=== PATIENT | male | born 1945 | race Caucasian/White ===

== ENCOUNTER 2018-01-01 21:27 | Inpatient (IN) ==
[2018-01-01] MEDS ORDERED: cefTRIAXone 1,000 MG VIAL IM STA (22:49)
[2018-01-01] MEDS ORDERED: ALBUTEROL NEB SOLN 5 MG/ML 20 ML/BOTTLE CONT NEB STA (22:49)
[2018-01-01] MEDS ORDERED: methylPREDNISolone SOD SUC 125 MG/2 ML VIAL IM STA (22:49)
[2018-01-01] MEDS ORDERED: cefTRIAXone 1,000 MG VIAL ONE (23:22)
[2018-01-01] MEDS ORDERED: methylPREDNISolone SOD SUC 125 MG/2 ML VIAL ONE (23:22)
[2018-01-02] MEDS ORDERED: SODIUM CHLORIDE 0.9% 1,000 ML IV STA (00:55)
[2018-01-02 01:28] LABS: Basophils % 0.2 % (0.0-0.8); Hematocrit 43.4 VOL% (42.0-52.0); Hemoglobin 14.7 GM/DL (14.0-18.0); Immature Granulocytes % 1.3 %; Immature Granulocytes Absolute 0.26 #; Lymphocytes # 1.2 10*3/uL (1.4-4.0); Mean Corpuscular HGB Conc 33.9 GM/DL (32-36); Mean Corpuscular Hemoglobin 31 PG (27-34); Mean Corpuscular Volume 90.8 FL (87-102); Mean Platelet Volume 8.9 FL (9.6-12.0); Neutrophils # 17.5 10*3/uL (1.4-7.4); Neutrophils % 87.5 % (38.7-73.9); Platelet Count 428 T/CUMM (130-400); Red Blood Count 4.78 MC/CUMM (3.8-5.5)
[2018-01-02 01:46] LABS: Lactic Acid 3.3 MMOL/L (0.4-2.0)
[2018-01-02 01:47] LABS: Alanine Aminotransferase 13 U/L (16-61); Albumin 3.2 G/DL (3.4-5.0); Alkaline Phosphatase 67 U/L (45-117); Aspartate Amino Transferase 13 U/L (0-37); Blood Urea Nitrogen 22 MG/DL (7-18); Calcium 8.8 MG/DL (8.5-10.1); Glucose 178 MG/DL (74-106); Potassium 3.6 MMOL/L (3.5-5.1); Sodium 136 MMOL/L (136-145); Total Protein 7.2 G/DL (6.4-8.3); Troponin I Only < 0.015 NG/ML (0.00-0.045)
[2018-01-02] MEDS ORDERED: SODIUM CHLORIDE 0.9% 2,350 ML IV ONE (01:47)
[2018-01-02] MEDS ORDERED: MAGNESIUM SULF RIDER 2 GM in PREMIX 1 EACH IV STA (01:50)
[2018-01-02] MEDS ORDERED: PIPERACILLIN/TAZOBACTAM 3,375 MG in SODIUM CHLORIDE 0.9% 100 ML IV SCH (02:00)
[2018-01-02] MEDS ORDERED: SODIUM CHLORIDE 0.9% 1,000 ML IV SCH (02:00)
[2018-01-02] MEDS ORDERED: MAGNESIUM SULF RIDER 50 ML IV ONE (02:07)
[2018-01-02] MEDS ORDERED: PIPERACILLIN/TAZOBACTAM 3,375 MG VIAL IV ONE (02:24)
[2018-01-02] MEDS ORDERED: SODIUM CHLORIDE 0.9% 100 ML IV ONE (02:24)
[2018-01-02] MEDS ORDERED: ACETAMINOPHEN 325 MG TABLET PO PRN (03:38)
[2018-01-02] MEDS ORDERED: ONDANSETRON 4 MG/2 ML VIAL IV PRN (03:38)
[2018-01-02] MEDS ORDERED: ALBUTEROL/IPRATROPIUM 3 ML NEB RESP TX PRN (03:38)
[2018-01-02 03:48] LABS: Partial Thromboplastin Time 27.2 SECS (0-40)
[2018-01-02 05:47] LABS: Basophils % 0.1 % (0.0-0.8); Hematocrit 40.7 VOL% (42.0-52.0); Immature Granulocytes % 1.4 %; Immature Granulocytes Absolute 0.25 #; Lymphocytes # 0.4 10*3/uL (1.4-4.0); Lymphocytes % 2.3 % (21.2-54.2); Mean Corpuscular HGB Conc 34.4 GM/DL (32-36); Mean Corpuscular Hemoglobin 31 PG (27-34); Mean Corpuscular Volume 91.1 FL (87-102); Mean Platelet Volume 9.3 FL (9.6-12.0); Monocytes # 0.4 10*3/uL (0.11-0.8); Neutrophils % 94.2 % (38.7-73.9); Platelet Count 404 T/CUMM (130-400); Red Blood Count 4.47 MC/CUMM (3.8-5.5); Red Cell Distribution Width 13.2 % (9.3-17.3); White Blood Count 18.1 T/CUMM (4-12)
[2018-01-02 06:12] LABS: Lactic Acid 6.2 MMOL/L (0.4-2.0)
[2018-01-02 06:25] LABS: Albumin 2.9 G/DL (3.4-5.0); Band Neutrophils 3 % (0-10); Bilirubin,Total 0.9 MG/DL (0.2-1.0); Calcium 8.3 MG/DL (8.5-10.1); Hypochromasia Slight; Lymphocytes 1 % (20-55); Osmolality,Calculated 281.8 MOS/KG (273-304); Ovalocytes Slight; Platelet Estimate Adequate; Potassium 4.1 MMOL/L (3.5-5.1); Segmented Neutrophils 93 % (50-85); Total Cells Counted 100
[2018-01-02 06:26] LABS: Burr Cells Slight; Giant Platelets Few
[2018-01-02] MEDS: methylPREDNISolone SOD SUC 40 MG/1 ML VIAL IV SCH ×3 (06:31→21:30)
[2018-01-02] MEDS ORDERED: SODIUM CHLORIDE 0.9% 1,000 ML IV ONE (07:14)
[2018-01-02 08:13] LABS: Lactic Acid 4.6 MMOL/L (0.4-2.0)
[2018-01-02] MEDS ORDERED: LISINOPRIL/HCTZ 20-12.5 MG TABLET PO SCH (09:00)
[2018-01-02] MEDS: ASPIRIN EC 81 MG TABLET PO SCH (09:38)
[2018-01-02] MEDS: PANTOPRAZOLE 40 MG TABLET PO SCH (09:38)
[2018-01-02] MEDS: AZITHROMYCIN INJ 500 MG in SODIUM CHLORIDE 0.9% 250 ML IV SCH (09:38)
[2018-01-02] MEDS: amLODIPine 5 MG TABLET PO SCH (09:38)
[2018-01-02] MEDS: DOCUSATE SODIUM 100 MG CAPSULE PO SCH ×2 (09:38→21:17)
[2018-01-02] MEDS: MULTIVITAMIN (OCUVITE) TABLET PO SCH (09:38)
[2018-01-02 10:21] LABS: Apearance,Urine Slightly Hazy (Clear); Bilirubin,Urine Negative (Negative); Blood, Urine Negative (Negative); Glucose,Urine (UA) 50 mg/dL (Negative); Hyaline Casts,Urine 3 /LPF (0-3); Ketones,Urine Negative (Negative); Mucus,Urine Occasional /LPF (Occasional); Nitrite,Urine Negative (Negative); Protein,Urine Negative; RBC,Urine 2 /HPF (0-4); Squamous Epithelial Cell,Urine Occasional /HPF (0-10); Urine Color Yellow (Yellow); Urine Specific Gravity 1.016 (1.001-1.035); Urine Urobilinogen < 2.0 EU/DL (0.2-1.0); WBC,Urine 1 /HPF (0-6)
[2018-01-02] MEDS: SODIUM CHLORIDE 0.9% 1,000 ML IV SCH ×2 (13:51→23:10)
[2018-01-02] MEDS: cefTRIAXone 1,000 MG in SYRINGE 1 EACH IV SCH (21:15)
[2018-01-03 05:52] LABS: Calcium 8.6 MG/DL (8.5-10.1); Osmolality,Calculated 284.5 MOS/KG (273-304); Potassium 4.8 MMOL/L (3.5-5.1)
[2018-01-03] MEDS: methylPREDNISolone SOD SUC 40 MG/1 ML VIAL IV SCH ×3 (06:14→21:44)
[2018-01-03] MEDS: DOCUSATE SODIUM 100 MG CAPSULE PO SCH ×2 (08:22→21:44)
[2018-01-03] MEDS: ASPIRIN EC 81 MG TABLET PO SCH (08:22)
[2018-01-03] MEDS: MULTIVITAMIN (OCUVITE) TABLET PO SCH (08:22)
[2018-01-03] MEDS: amLODIPine 5 MG TABLET PO SCH (08:22)
[2018-01-03] MEDS: PANTOPRAZOLE 40 MG TABLET PO SCH (08:22)
[2018-01-03] MEDS: AZITHROMYCIN INJ 500 MG in SODIUM CHLORIDE 0.9% 250 ML IV SCH (08:23)
[2018-01-03] MEDS: cefTRIAXone 1,000 MG in SYRINGE 1 EACH IV SCH (21:44)
[2018-01-04 05:33] LABS: Basophils % 0.1 % (0.0-0.8); Hematocrit 36.9 VOL% (42.0-52.0); Hemoglobin 12.9 GM/DL (14.0-18.0); Immature Granulocytes % 0.6 %; Lymphocytes # 0.8 10*3/uL (1.4-4.0); Lymphocytes % 4.6 % (21.2-54.2); Mean Corpuscular Hemoglobin 31 PG (27-34); Mean Corpuscular Volume 89.8 FL (87-102); Mean Platelet Volume 9.6 FL (9.6-12.0); Monocytes # 0.4 10*3/uL (0.11-0.8); Monocytes % 2.3 % (1.7-12.7); Neutrophils # 15.1 10*3/uL (1.4-7.4); Neutrophils % 92.4 % (38.7-73.9); Platelet Count 398 T/CUMM (130-400); Red Blood Count 4.11 MC/CUMM (3.8-5.5); Red Cell Distribution Width 13.4 % (9.3-17.3); White Blood Count 16.4 T/CUMM (4-12)
[2018-01-04 05:52] LABS: Band Neutrophils 3 % (0-10); Giant Platelets Few; Hypochromasia 1+; Lymphocytes 7 % (20-55); Platelet Estimate Adequate; Segmented Neutrophils 88 % (50-85); Total Cells Counted 100
[2018-01-04 05:53] LABS: Ovalocytes Slight
[2018-01-04 06:03] LABS: Calcium 8.5 MG/DL (8.5-10.1); Osmolality,Calculated 284.5 MOS/KG (273-304); Potassium 4.8 MMOL/L (3.5-5.1)
[2018-01-04 06:05] LABS: Lactic Acid 1.1 MMOL/L (0.4-2.0)
[2018-01-04] MEDS: methylPREDNISolone SOD SUC 40 MG/1 ML VIAL IV SCH ×3 (06:35→22:53)
[2018-01-04] MEDS: MULTIVITAMIN (OCUVITE) TABLET PO SCH (08:31)
[2018-01-04] MEDS: amLODIPine 5 MG TABLET PO SCH (08:31)
[2018-01-04] MEDS: ASPIRIN EC 81 MG TABLET PO SCH (08:31)
[2018-01-04] MEDS: PANTOPRAZOLE 40 MG TABLET PO SCH (08:31)
[2018-01-04] MEDS: DOCUSATE SODIUM 100 MG CAPSULE PO SCH ×2 (08:32→21:21)
[2018-01-04] MEDS: AZITHROMYCIN INJ 500 MG in SODIUM CHLORIDE 0.9% 250 ML IV SCH (08:32)
[2018-01-04] MEDS: cefTRIAXone 1,000 MG in SYRINGE 1 EACH IV SCH (22:52)
[2018-01-05] MEDS: methylPREDNISolone SOD SUC 40 MG/1 ML VIAL IV SCH (05:37)
[2018-01-05 08:07] VITALS: BP 148/88
[2018-01-05] MEDS: ASPIRIN EC 81 MG TABLET PO SCH (09:24)
[2018-01-05] MEDS: DOCUSATE SODIUM 100 MG CAPSULE PO SCH (09:24)
[2018-01-05] MEDS: MULTIVITAMIN (OCUVITE) TABLET PO SCH (09:24)
[2018-01-05] MEDS: PANTOPRAZOLE 40 MG TABLET PO SCH (09:24)
[2018-01-05] MEDS: amLODIPine 5 MG TABLET PO SCH (09:25)
[2018-01-05] MEDS: AZITHROMYCIN INJ 500 MG in SODIUM CHLORIDE 0.9% 250 ML IV SCH (09:25)
== END 2018-01-05 11:48 | disposition home or self-care (01) | DRG 683 ==
LOC: N.ED 21:27 → N.EDINP 01-02 01:51 → N.TELES 01-02 03:06
PROVIDERS: ADMIT Family Medicine; ATTEND Family Medicine